=== PATIENT | female | born 1935 | race Caucasian/White ===

== ENCOUNTER → 2016-07-01 | Outpatient (CLI) | payer MEDICARE, OTHER ==
--- NOTE | 2016-07-01 16:05 | Diagnostic Imaging Report ---
INDICATION: Cough. EXAMINATION: PA and lateral views of the chest are obtained. COMPARISON: Comparison is made to study of 05/07/2014. FINDINGS: Heart size and pulmonary vascularity are within normal limits, and the lungs are clear, bilaterally. IMPRESSION: Unremarkable chest. Dictated by: Dictated on workstation # [id number]
== END ==
LOC: RAD 15:34
PROVIDERS: ATTEND Internal Medicine
DX: R05 Cough (principal)
CPT/HCPCS: 71020

== ENCOUNTER → 2016-07-31 | Outpatient (CLI) | payer MEDICARE, OTHER ==
[2016-07-31 09:11] LABS: BASOPHILS % (AUTO) 0 % (0-10); EOSINOPHILS # (AUTO) 0.3 10^3/uL (0.0-0.3); EOSINOPHILS % (AUTO) 2 % (0-10); LYMPHOCYTES # (AUTO) 1.8 X 10^3 (1.0-4.0); LYMPHOCYTES % (AUTO) 14 % (12-44); MEAN CORPUSCULAR HEMOGLOBIN 30 PG (25-34); MEAN CORPUSCULAR HGB CONC 33 G/DL (32-36); MEAN CORPUSCULAR VOLUME 90 FL (80-99); MEAN PLATELET VOLUME 11.2 FL (7.4-10.4); MONOCYTES # (AUTO) 1.2 X 10^3 (0.0-1.0); MONOCYTES % (AUTO) 9 % (0-12); NEUTROPHILS # (AUTO) 9.8 X 10^3 (1.8-7.8); NEUTROPHILS % (AUTO) 75 % (42-75); PLATELET COUNT 237 10^3/uL (130-400); RED BLOOD COUNT 5.02 10^6/uL (4.35-5.85); RED CELL DISTRIBUTION WIDTH 14.9 % (10.0-14.5); RETICULOCYTE % 0.91 % (0.50-2.40); WHITE BLOOD COUNT 13.2 10^3/uL (4.3-11.0)
[2016-07-31 09:13] LABS: PATH WILL NEED TO REVIEW SMEAR PATH TO REVIEW
[2016-07-31 09:52] LABS: BAND NEUTROPHILS 4 %; BASOPHILS % (MANUAL) 1 %; EOSINOPHILS % (MANUAL) 0 %; LYMPHOCYTES % (MANUAL) 14 %; NEUTROPHILS % (MANUAL) 73 %
[2016-07-31 09:53] LABS: ANISOCYTOSIS SLIGHT
== END ==
LOC: LAB 08:49
PROVIDERS: ATTEND Internal Medicine
DX: D72.829 Elevated white blood cell count, unspecified (principal)
CPT/HCPCS: 36415; 85007; 85027; 85045

== ENCOUNTER → 2016-08-04 | Outpatient (CLI) | payer MEDICARE, OTHER ==
[2016-08-08 07:18] LABS: JAK2 MUTATION Not Detected
== END ==
LOC: LAB 12:06
PROVIDERS: ATTEND Internal Medicine
DX: D72.821 Monocytosis (symptomatic) (principal)
CPT/HCPCS: 36415; 81206; 81270

== ENCOUNTER → 2017-05-04 | Outpatient (CLI) | payer MEDICARE, OTHER ==
--- NOTE | 2017-05-04 17:03 | Diagnostic Imaging Report ---
EXAMINATION: PA and lateral chest at 4:33 p.m. INDICATION: Cough, congestion. FINDINGS: The heart size is within normal limits and stable when compared to 07/01/2016. The lungs are clear. There is no sign of failure, pneumonia, or pleural effusion. The mediastinum is not widened. The osseous structures are intact. IMPRESSION: There is no evidence for active disease. When compared to the prior study, there has been no significant change. Dictated by: Dictated on workstation # [id number]
== END ==
LOC: RAD 16:02
PROVIDERS: ATTEND Nurse Practitioner
DX: R05 Cough (principal)
CPT/HCPCS: 71046

== ENCOUNTER → 2017-07-28 | Outpatient (RCR) | payer MEDICARE, OTHER | END | disposition home or self-care (01) | LOC: CR3 06-28 13:00 | PROVIDERS: ATTEND Internal Medicine | DX: Z29.8 Encounter for other specified prophylactic measures (principal) ==

== ENCOUNTER 2017-08-27 10:07 | Outpatient (RCR) | payer MEDICARE, OTHER | END 2017-08-29 | disposition home or self-care (01) | LOC: CR3 10:07 | PROVIDERS: ATTEND Internal Medicine | DX: Z29.8 Encounter for other specified prophylactic measures (principal) ==

== ENCOUNTER 2017-09-27 08:34 | Outpatient (RCR) | payer MEDICARE, OTHER | END 2017-09-29 | disposition home or self-care (01) | LOC: CR3 08:34 | PROVIDERS: ATTEND Internal Medicine | DX: Z29.8 Encounter for other specified prophylactic measures (principal) ==

== ENCOUNTER 2017-10-29 10:10 | Outpatient (RCR) | payer MEDICARE, OTHER | END 2017-10-31 | disposition home or self-care (01) | LOC: CR3 10:10 | PROVIDERS: ATTEND Internal Medicine | DX: Z29.8 Encounter for other specified prophylactic measures (principal) ==

== ENCOUNTER → 2017-12-03 | Outpatient (RCR) | payer MEDICARE, OTHER | END | disposition home or self-care (01) | LOC: CR3 11-03 09:00 | PROVIDERS: ATTEND Internal Medicine | DX: Z29.8 Encounter for other specified prophylactic measures (principal) ==

== ENCOUNTER → 2018-01-05 | Outpatient (RCR) | payer MEDICARE, OTHER | END | disposition home or self-care (01) | LOC: CR3 12-06 10:00 | PROVIDERS: ATTEND Internal Medicine | DX: Z29.8 Encounter for other specified prophylactic measures (principal) ==

== ENCOUNTER 2018-02-04 09:10 | Outpatient (RCR) | payer MEDICARE, OTHER | END 2018-02-06 | disposition home or self-care (01) | LOC: CR3 09:10 | PROVIDERS: ATTEND Internal Medicine | DX: Z29.8 Encounter for other specified prophylactic measures (principal) ==

== ENCOUNTER → 2018-02-04 | Outpatient (CLI) | payer MEDICARE, OTHER ==
[2018-02-04 11:51] LABS: ABSOLUTE RETIC # 69 10e9/L (24-90); BASOPHILS # (AUTO) 0.1 10^3/uL (0.0-0.1); BASOPHILS % (AUTO) 1 % (0-10); EOSINOPHILS # (AUTO) 0.2 10^3/uL (0.0-0.3); EOSINOPHILS % (AUTO) 2 % (0-10); HEMATOCRIT 43 % (35-52); HEMOGLOBIN 14.2 G/DL (11.5-16.0); LYMPHOCYTES # (AUTO) 1.9 X 10^3 (1.0-4.0); LYMPHOCYTES % (AUTO) 19 % (12-44); MEAN CORPUSCULAR HEMOGLOBIN 30 PG (25-34); MEAN CORPUSCULAR HGB CONC 33 G/DL (32-36); MEAN CORPUSCULAR VOLUME 88 FL (80-99); MEAN PLATELET VOLUME 11.2 FL (7.4-10.4); MONOCYTES # (AUTO) 0.9 X 10^3 (0.0-1.0); MONOCYTES % (AUTO) 9 % (0-12); NEUTROPHILS # (AUTO) 7.2 X 10^3 (1.8-7.8); NEUTROPHILS % (AUTO) 70 % (42-75); PLATELET COUNT 284 10^3/uL (130-400); RED BLOOD COUNT 4.81 10^6/uL (4.35-5.85); RED CELL DISTRIBUTION WIDTH 14.5 % (10.0-14.5); RETICULOCYTE % 1.43 % (0.50-2.40); WHITE BLOOD COUNT 10.2 10^3/uL (4.3-11.0)
[2018-02-04 12:27] LABS: BAND NEUTROPHILS 0 %; BASOPHILS % (MANUAL) 0 %; EOSINOPHILS % (MANUAL) 2 %; LYMPHOCYTES % (MANUAL) 12 %; MONOCYTES % (MANUAL) 7 %; NEUTROPHILS % (MANUAL) 72 %; RBC MORPH NORMAL; REACTIVE LYMPHOCYTES 7 %
== END ==
LOC: LAB 11:26
PROVIDERS: ATTEND Internal Medicine
DX: D72.829 Elevated white blood cell count, unspecified (principal)
CPT/HCPCS: 36415; 81270; 85007; 85027; 85045; 88368; 88369

== ENCOUNTER 2018-03-07 06:15 | Outpatient (RCR) | payer MEDICARE, OTHER | END 2018-03-11 | disposition home or self-care (01) | LOC: CR3 06:15 | PROVIDERS: ATTEND Internal Medicine | DX: Z29.8 Encounter for other specified prophylactic measures (principal) ==

== ENCOUNTER 2018-04-13 14:35 | Outpatient (RCR) | payer MEDICARE, OTHER | END 2018-04-14 | disposition home or self-care (01) | LOC: CR3 14:35 | PROVIDERS: ATTEND Internal Medicine | DX: Z29.8 Encounter for other specified prophylactic measures (principal) ==

== ENCOUNTER 2018-05-11 13:16 | Outpatient (RCR) | payer MEDICARE, OTHER | END 2018-05-15 | disposition home or self-care (01) | LOC: CR3 13:16 | PROVIDERS: ATTEND Internal Medicine | DX: Z29.8 Encounter for other specified prophylactic measures (principal) ==

== ENCOUNTER 2018-06-16 06:00 | Outpatient (RCR) | payer MEDICARE, OTHER | END 2018-06-18 | disposition home or self-care (01) | LOC: CR3 06:00 | PROVIDERS: ATTEND Internal Medicine | DX: Z29.8 Encounter for other specified prophylactic measures (principal) ==

== ENCOUNTER → 2018-07-20 | Outpatient (RCR) | payer MEDICARE, OTHER | END | disposition home or self-care (01) | LOC: CR3 06-20 09:00 | PROVIDERS: ATTEND Internal Medicine | DX: Z29.8 Encounter for other specified prophylactic measures (principal) ==

== ENCOUNTER 2018-08-19 09:32 | Outpatient (RCR) | payer MEDICARE, OTHER | END 2018-08-21 | disposition home or self-care (01) | LOC: CR3 09:32 | PROVIDERS: ATTEND Internal Medicine | DX: Z29.8 Encounter for other specified prophylactic measures (principal) ==

== ENCOUNTER 2018-09-21 06:25 | Outpatient (RCR) | payer MEDICARE, OTHER | END 2018-09-23 | disposition home or self-care (01) | LOC: CR3 06:25 | PROVIDERS: ATTEND Internal Medicine | DX: Z29.8 Encounter for other specified prophylactic measures (principal) ==

== ENCOUNTER → 2018-11-02 | Outpatient (RCR) | payer MEDICARE, OTHER | END | disposition home or self-care (01) | LOC: CR3 10-03 13:00 | PROVIDERS: ATTEND Internal Medicine | DX: Z01.818 Encounter for other preprocedural examination (principal) ==

== ENCOUNTER 2018-12-02 06:34 | Outpatient (RCR) | payer MEDICARE, OTHER | END 2018-12-04 | disposition home or self-care (01) | LOC: CR3 06:34 | PROVIDERS: ATTEND Internal Medicine | DX: Z29.8 Encounter for other specified prophylactic measures (principal) ==

== ENCOUNTER 2018-12-28 07:09 | Outpatient (RCR) | payer MEDICARE, OTHER | END 2019-01-04 | disposition home or self-care (01) | LOC: CR3 07:09 | PROVIDERS: ATTEND Internal Medicine | DX: Z29.8 Encounter for other specified prophylactic measures (principal) ==

== ENCOUNTER 2019-01-30 06:24 | Outpatient (RCR) | payer MEDICARE, OTHER | END 2019-02-08 | disposition home or self-care (01) | LOC: CR3 06:24 | PROVIDERS: ATTEND Internal Medicine | DX: Z29.8 Encounter for other specified prophylactic measures (principal) ==

== ENCOUNTER 2019-03-27 06:23 | Outpatient (RCR) | payer MEDICARE, OTHER | END 2019-03-29 | disposition home or self-care (01) | LOC: CR3 06:23 | PROVIDERS: ATTEND Internal Medicine | DX: Z29.8 Encounter for other specified prophylactic measures (principal) ==

== ENCOUNTER 2019-04-28 06:13 | Outpatient (RCR) | payer MEDICARE, OTHER | END 2019-04-30 | disposition home or self-care (01) | LOC: CR3 06:13 | PROVIDERS: ATTEND Internal Medicine | DX: Z29.8 Encounter for other specified prophylactic measures (principal) ==

== ENCOUNTER → 2019-05-31 | Outpatient (RCR) | payer MEDICARE, OTHER | END | disposition home or self-care (01) | LOC: CR3 05-01 10:00 | PROVIDERS: ATTEND Internal Medicine | DX: Z29.8 Encounter for other specified prophylactic measures (principal) ==

== ENCOUNTER 2019-06-09 06:52 | Outpatient (RCR) | payer MEDICARE, OTHER | END 2019-07-02 | disposition home or self-care (01) | LOC: CR3 06:52 | PROVIDERS: ATTEND Internal Medicine | DX: Z29.8 Encounter for other specified prophylactic measures (principal) ==

== ENCOUNTER → 2019-09-18 | Outpatient (CLI) | payer MEDICARE, OTHER ==
[2019-09-18 15:19] LABS: ABSOLUTE RETIC # 61 10e9/L (24-90); BASOPHILS # (AUTO) 0.1 10^3/uL (0.0-0.1); BASOPHILS % (AUTO) 0 % (0-10); EOSINOPHILS # (AUTO) 0.2 10^3/uL (0.0-0.3); EOSINOPHILS % (AUTO) 1 % (0-10); HEMATOCRIT 45 % (35-52); HEMOGLOBIN 14.7 G/DL (11.5-16.0); LYMPHOCYTES # (AUTO) 2.7 X 10^3 (1.0-4.0); LYMPHOCYTES % (AUTO) 12 % (12-44); MEAN CORPUSCULAR HEMOGLOBIN 29 PG (25-34); MEAN CORPUSCULAR HGB CONC 33 G/DL (32-36); MEAN CORPUSCULAR VOLUME 89 FL (80-99); MEAN PLATELET VOLUME 11.2 FL (7.4-10.4); MONOCYTES # (AUTO) 2.1 X 10^3 (0.0-1.0); MONOCYTES % (AUTO) 9 % (0-12); NEUTROPHILS # (AUTO) 17.9 X 10^3 (1.8-7.8); NEUTROPHILS % (AUTO) 78 % (42-75); PLATELET COUNT 308 10^3/uL (130-400); RED CELL DISTRIBUTION WIDTH 14.3 % (10.0-14.5); RETICULOCYTE % 1.22 % (0.50-2.40); WHITE BLOOD COUNT 22.9 10^3/uL (4.3-11.0)
[2019-09-18 15:47] LABS: ANISOCYTOSIS SLIGHT; BAND NEUTROPHILS 2 %; BASOPHILS % (MANUAL) 0 %; EOSINOPHILS % (MANUAL) 1 %; LYMPHOCYTES % (MANUAL) 7 %; MONOCYTES % (MANUAL) 7 %; NEUTROPHILS % (MANUAL) 81 %; REACTIVE LYMPHOCYTES 2 %; SMUDGE CELLS SLIGHT; TOXIC GRANULATION/VACUOLAZATIO 1+
== END ==
LOC: LAB 14:33
PROVIDERS: ATTEND Physician Assistant
DX: D72.829 Elevated white blood cell count, unspecified (principal)
CPT/HCPCS: 36415; 85007; 85027; 85045

== ENCOUNTER → 2020-07-10 | Outpatient (RCR) | payer MEDICARE, OTHER | END | disposition home or self-care (01) | LOC: CR3 06-10 06:24 | PROVIDERS: ATTEND Internal Medicine | DX: Z29.8 Encounter for other specified prophylactic measures (principal) ==

== ENCOUNTER 2020-08-07 11:13 | Outpatient (RCR) | payer MEDICARE, OTHER | END 2020-08-11 | disposition home or self-care (01) | LOC: CR3 11:13 | PROVIDERS: ATTEND Internal Medicine | DX: Z29.8 Encounter for other specified prophylactic measures (principal) ==

== ENCOUNTER → 2020-09-11 | Outpatient (RCR) | payer MEDICARE, OTHER | END | disposition home or self-care (01) | LOC: CR3 08-12 14:46 | PROVIDERS: ATTEND Internal Medicine | DX: Z29.8 Encounter for other specified prophylactic measures (principal) ==

== ENCOUNTER 2020-10-04 13:22 | Outpatient (RCR) | payer MEDICARE, OTHER | END 2020-10-13 | disposition home or self-care (01) | LOC: CR3 13:22 | PROVIDERS: ATTEND Internal Medicine | DX: Z29.8 Encounter for other specified prophylactic measures (principal) ==

== ENCOUNTER 2020-11-06 13:11 | Outpatient (RCR) | payer MEDICARE, OTHER | END 2020-11-13 | disposition home or self-care (01) | LOC: CR3 13:11 | PROVIDERS: ATTEND Internal Medicine | DX: Z29.8 Encounter for other specified prophylactic measures (principal) ==

== ENCOUNTER 2020-11-25 13:11 | Outpatient (RCR) | payer MEDICARE, OTHER | END 2020-12-25 | disposition home or self-care (01) | LOC: CR3 13:11 | PROVIDERS: ATTEND Internal Medicine | DX: Z29.8 Encounter for other specified prophylactic measures (principal) ==

== ENCOUNTER → 2021-04-16 | Outpatient (CLI) | payer MEDICARE, OTHER | LOC: LABNPT 07:22 | PROVIDERS: ATTEND Internal Medicine | DX: R51.9 Headache, unspecified (principal); R05.9 Cough, unspecified; R09.89 Other specified symptoms and signs involving the circulatory and respiratory systems; Z20.822 Contact with and (suspected) exposure to COVID-19 | CPT/HCPCS: 87635 ==

== ENCOUNTER → 2021-10-23 | Outpatient (CLI) | payer MEDICARE, OTHER ==
[2021-10-23 10:59] LABS: ABSOLUTE RETIC # 76 10e9/uL (24-90); BASOPHILS # (AUTO) 0.1 10^3/uL (0.0-0.1); BASOPHILS % (AUTO) 1 % (0-10); EOSINOPHILS # (AUTO) 0.1 10^3/uL (0.0-0.3); EOSINOPHILS % (AUTO) 1 % (0-10); HEMATOCRIT 44 % (35-52); HEMOGLOBIN 14.4 g/dL (11.5-16.0); LYMPHOCYTES # (AUTO) 1.8 10^3/uL (1.0-4.0); LYMPHOCYTES % (AUTO) 14 % (12-44); MEAN CORPUSCULAR HEMOGLOBIN 29 pg (25-34); MEAN CORPUSCULAR HGB CONC 33 g/dL (32-36); MEAN CORPUSCULAR VOLUME 90 fL (80-99); MEAN PLATELET VOLUME 11.7 fL (9.0-12.2); MONOCYTES # (AUTO) 0.9 10^3/uL (0.0-1.0); MONOCYTES % (AUTO) 8 % (0-12); NEUTROPHILS # (AUTO) 9.6 10^3/uL (1.8-7.8); NEUTROPHILS % (AUTO) 76 % (42-75); PLATELET COUNT 253 10^3/uL (130-400); RETICULOCYTE % 1.56 % (0.50-2.40); WHITE BLOOD COUNT 12.5 10^3/uL (4.3-11.0)
[2021-10-23 11:57] LABS: BAND NEUTROPHILS 2 %; BASOPHILS % (MANUAL) 0 %; EOSINOPHILS % (MANUAL) 2 %; LYMPHOCYTES % (MANUAL) 14 %; MONOCYTES % (MANUAL) 9 %; NEUTROPHILS % (MANUAL) 71 %
[2021-10-23 11:58] LABS: REACTIVE LYMPHOCYTES 2 %
== END ==
LOC: LAB 10:23
PROVIDERS: ATTEND Internal Medicine
DX: Z01.89 Encounter for other specified special examinations (principal)
CPT/HCPCS: 36415; 85007; 85027; 85045; 85055